=== PATIENT | male | born 1955 | race Caucasian/White ===

== ENCOUNTER 2023-12-24 14:03 | Emergency (ER) | payer MEDICARE, SELFPAY ==
[2023-12-24] VITALS (9 sets, daily range): BP systolic 113–149; BP diastolic 72–100; PULSE 64–77; RESP 12–20; TEMP 36.6; O2SAT 94–98; BMI 36.3
--- NOTE | 2023-12-24 14:24 | CRLHL7_ITS ---
For Patients: As a result of the Century Cures Act, medical imaging exams and procedure reports are released immediately into your electronic medical record. You may view this report before your referring provider. If you have questions, please contact your health care provider. Indication: R sided facial droop Technique: CT of the head without contrast. Coronal and sagittal reformats. Bone and soft tissue windows. Comparison: No prior studies available for comparison at this institution. Findings: No acute intracranial hemorrhage or extra-axial collection. No evidence of acute cortical infarction. No mass effect or midline shift. Normal cerebral volume. The ventricles are normal in size, shape and contour. There is normal osei and white matter differentiation. Prominent perivascular spaces in the bilateral basal ganglia. There is a partially calcified 1.6 x 1 centimeter meningioma along the left posterior parietal convexity with mild mass effect on the underlying parenchyma and without evidence of parenchymal edema. The orbital contents are normal. No calvarial fractures. No lytic or sclerotic osseous lesions within the calvarium or skull base. Scalp and other imaged soft tissue structures are normal. Mastoid air cells are clear. Paranasal sinuses are well aerated. Impression: 1. No acute intracranial abnormality. 2. There is a partially calcified 1.6 cm meningioma along the left posterior parietal convexity with mild mass effect on the underlying parenchyma and without evidence of parenchymal edema. Please note that all CT scans at this facility use dose modulation, iterative reconstruction, and/or weight-based dosing when appropriate to reduce radiation dose to as low as reasonably achievable. Dictated by Darrick Francois MD @ 12/24/2023 3:23:37 PM (Electronically Signed)
--- NOTE | 2023-12-24 14:24 | CRLHL7_ITS ---
For Patients: As a result of the Century Cures Act, medical imaging exams and procedure reports are released immediately into your electronic medical record. You may view this report before your referring provider. If you have questions, please contact your health care provider. CLINICAL HISTORY: Right-sided facial droop. TECHNIQUE: Standard helical CT image acquisition through the head following the administration of intravenous contrast was performed. 3D and MIP reconstructions were performed at a separate workstation and permanently archived. COMPARISON: None available. FINDINGS: No intracranial proximal large vessel occlusion or flow-limiting luminal stenosis. No evidence of cerebral aneurysm. No findings to suggest an arterial-venous shunting lesion. The major dural venous sinuses and deep venous system are patent. Left posterior parietal convexity meningioma. IMPRESSION: No intracranial proximal large vessel occlusion, flow-limiting luminal stenosis, or cerebral aneurysm. Please note that all CT scans at this facility use dose modulation, iterative reconstruction, and/or weight-based dosing when appropriate to reduce radiation dose to as low as reasonably achievable. Dictated by Danial John MD @ 12/25/2023 12:03:46 AM (Electronically Signed)
--- NOTE | 2023-12-24 14:24 | CRLHL7_ITS ---
For Patients: As a result of the Century Cures Act, medical imaging exams and procedure reports are released immediately into your electronic medical record. You may view this report before your referring provider. If you have questions, please contact your health care provider. CLINICAL HISTORY: Right-sided facial droop. TECHNIQUE: Standard helical CT image acquisition through the neck was performed after intravenous contrast bolus enhancement. 3D and MIP reconstructions were performed at a separate workstation and permanently archived. COMPARISON: None available. FINDINGS: The origins of the great vessels from the aortic arch are patent. The common carotid arteries are patent. No significant luminal stenoses of the proximal ICAs by NASCET criteria. The more distal cervical segments of the ICAs are patent. The origins and cervical segments of the vertebral arteries are patent. IMPRESSION: Patent cervical arterial vasculature without hemodynamically significant luminal stenosis. Please note that all CT scans at this facility use dose modulation, iterative reconstruction, and/or weight-based dosing when appropriate to reduce radiation dose to as low as reasonably achievable. Dictated by Danial John MD @ 12/24/2023 11:59:43 PM (Electronically Signed)
--- NOTE | 2023-12-24 14:26 | ED_ITS ---
HPI - General Adult General Chief complaint: Neuro Symptoms/Altered Deficit Stated complaint: Possible stroke--slurred speech Time Seen by Provider: 12/24/23 14:04 History of Present Illness HPI narrative: Patient is a 67-year-old gentleman who comes in with a 36 hour history of right-sided facial droop. This involves both the upper and lower side of the face. He has no difficulties with articulation other than from his drooped left side of his face. He has no bowel or bladder symptoms no fevers no chills no palpitations. No numbness no tingling no weakness elsewhere. His addition he has no numbness on his face. His sensation of taste and smell or un altered. The patient is able to close his left eye but with a different pattern as to the right eye. Patient has had no similar symptoms. He does take baby aspirin daily for cardiac reasons and has history of hypertension and hyper lipidemia. Related Data Home Medications ?Medication ?Instructions ?Recorded ?Confirmed amlodipine 10 mg tablet 10 mg PO DAILY 12/24/23 12/24/23 famotidine 40 mg tablet 40 mg PO QPM 12/24/23 12/24/23 fluticasone propionate 50 1 spray intranasal DAILY 12/24/23 12/24/23 mcg/actuation nasal spray,suspension loratadine 10 mg tablet 10 mg PO DAILY 12/24/23 12/24/23 losartan 100 mg tablet 100 mg PO DAILY 12/24/23 12/24/23 simvastatin 40 mg tablet 40 mg PO QPM 12/24/23 12/24/23 spironolactone 25 mg tablet 25 mg PO QAM 12/24/23 12/24/23 Previous Rx's ?Medication ?Instructions ?Recorded prednisone 20 mg tablet 30 mg (1.5 x 20 mg) PO BID #21 tabs 12/24/23 valacyclovir 1 gram tablet 1,000 mg PO TID #21 tabs 12/24/23 Allergies Allergy/AdvReac Type Severity Reaction Status Date / Time shellfish derived Allergy Unknown Verified 12/24/23 14:15 Review of Systems Status of ROS: Reports: 10 or more systems reviewed and unremarkable except as noted in History and below PFSH PFS Social History Smoking Status: Never smoker Do you use any of these nicotine containing products: None Second hand tobacco smoke exposure: No How often do you have a drink containing alcohol: never AUDIT-C Alcohol total score: 0 Non-prescribed substance use: denies use Exam Narrative: Exam Narrative: EXAM GENERAL: Patient appears comfortable and well. EYES: No scleral icterus. ENT: Tympanic membranes and oropharynx normal. THYROID: no thyroid nodules or thyromegaly. LYMPH: No supraclavicular or cervical lymphadenopathy. SKIN: Visible skin seen during exam normal or with benign process only. EXT: No dependent lower extremity pedal edema. HEART: Regular rate and rhythm with no murmurs, rubs, or gallops. LUNGS: Clear to auscultation bilaterally with no crackles or wheezes. ABD: Soft, non tender, non distended. PSYCH: Good eye contact, speech is not pressured. Neurologic: He has obvious drooping of the left side of his face involving the entire face. He is able to close the left eyelid but the brow is asymmetrical. No other focal neurologic defects. 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 I did initiate stroke workup with CT CTA CBC CMP EKG and UA. Vital Signs Vital signs: Initial Vital Signs Pulse Rate 77 12/24/23 14:09 Respiratory Rate 14 12/24/23 14:09 Blood Pressure 149/100 H 12/24/23 14:09 Blood Pressure Mean 116 H 12/24/23 14:09 Pulse Oximetry 94 12/24/23 14:09 Vital Signs Pulse Rate 77 12/24/23 14:09 Respiratory Rate 14 12/24/23 14:09 Blood Pressure 149/100 H 12/24/23 14:09 Pulse Oximetry 94 12/24/23 14:09 Temperature 97.8 F 12/24/23 14:12 Pulse Rate 64 12/24/23 15:17 Respiratory Rate 14 12/24/23 15:17 Blood Pressure 147/80 H 12/24/23 15:17 Pulse Oximetry 98 12/24/23 15:17 Oxygen Delivery Method Room Air 12/24/23 15:17 Medical Decision Making MDM Narrative Medical decision making narrative: Patient presents with classic findings of peripheral 7 or Almanza's palsy on the left. Workup is otherwise unremarkable with the exception of congenital findings and noncritical stenosis of the neck arteries as seen on CT. CT of the head does show a 1.6 cm meningioma in the left posterior parietal convexity. I did review these findings with Neurology and Neurology does not feel that the meningioma is clinically significant at this time but does require follow-up. Patient is otherwise neurologically intact. He does have risk factors I do think he does need follow-up of her think is most prudent to treat him for Almanza's palsy with valacyclovir and prednisone which we will be doing at this time. Differential diagnosis includes but not limited to Almanza's palsy Farhan Peter syndrome cerebrovascular accident TIA vertebral artery dissection. Lab Data Labs: Lab Results 12/24/23 12/24/23 Range/Units 14:20 14:37 Sodium 139 (135-149) mmol/L Potassium 4.5 (3.6-5.1) mmol/L Chloride 103 (96-114) mmol/L Carbon Dioxide 29 (20-32) mmol/L Anion Gap 7 (7-15) mEq/L BUN 19 (7-30) mg/dL Creatinine 0.9 (0.5-1.5) mg/dL Estimated Creat Clear 76.35 Estimated GFR 94 ml/min Glucose 101 (60-115) mg/dL Calcium 9.7 (8.4-10.6) mg/dL Total Bilirubin 0.7 (0.1-1.5) mg/dL AST 28 (12-35) U/L ALT 26 (4-50) U/L Alkaline Phosphatase 52 (40-150) U/L Total Protein 8.0 (6.0-8.3) g/dL Albumin 4.7 (3.3-5.0) g/dL Triglycerides 219 H (40-149) mg/dL Cholesterol 175 (90-199) mg/dL LDL Cholesterol, Calc 92 (<100) mg/dL HDL Cholesterol 39 L (>=40) mg/dL Urine Color Yellow (Yellow) Urine Appearance Clear (Clear) Urine pH 5.5 (5.0-8.5) Ur Specific Birney 1.015 (1.000-1.030) Urine Protein Negative (Negative) Urine Glucose (UA) Negative (Negative) Urine Ketones Negative (Negative) Urine Blood Negative (Negative) Urine Nitrite Negative (Negative) Urine Bilirubin Negative (Negative) Urine Urobilinogen 0.2 (0.2-1.0) Ur Leukocyte Esterase Negative (Negative) Discharge Plan Discharge Clinical Impression: Almanza's palsy, Meningioma Additional Instructions: Prednisone 30 mg twice daily for 7 days. Valacyclovir 1000 mg 3 times a day for 7 days. Follow-up with your doctor this week. Continue current medications. Activity Level: No Restrictions Discharge Diet: Regular Prescriptions: New valacyclovir 1 gram tablet 1,000 mg PO TID Qty: 21 2RF prednisone 20 mg tablet 30 mg PO BID Qty: 21 0RF No Action famotidine 40 mg tablet 40 mg PO QPM spironolactone 25 mg tablet 25 mg PO QAM simvastatin 40 mg tablet 40 mg PO QPM amlodipine 10 mg tablet 10 mg PO DAILY losartan 100 mg tablet 100 mg PO DAILY fluticasone propionate 50 mcg/actuation spray,suspension 1 spray INTRANASAL DAILY loratadine 10 mg tablet 10 mg PO DAILY Follow Up/Referrals: Juan Antonio MD [Primary Care Provider] -
[2023-12-24 14:34] LABS: Appearance Urine Clear (Clear); Bilirubin Urine Negative (Negative); Blood Urine Negative (Negative); Color Urine Yellow (Yellow); Glucose Urine Negative (Negative); Ketones Urine Negative (Negative); Leukocyte Esterase Urine Negative (Negative); Nitrite Urine Negative (Negative); Protein Urine Negative (Negative); Specific Gravity Urine 1.015 (1.000-1.030); Urobilinogen Urine 0.2 (0.2-1.0); pH Urine 5.5 (5.0-8.5)
[2023-12-24 14:57] LABS: Albumin* 4.7 g/dL (3.3-5.0); Chloride* 103 mmol/L (96-114)
[2023-12-24 14:58] LABS: Potassium* 4.5 mmol/L (3.6-5.1); Sodium* 139 mmol/L (135-149)
[2023-12-24 15:00] LABS: Anion Gap 7 mEq/L (7-15); Aspartate Amino Transferase* 28 U/L (12-35); Bilirubin Total* 0.7 mg/dL (0.1-1.5); Blood Urea Nitrogen* 19 mg/dL (7-30); Carbon Dioxide* 29 mmol/L (20-32); Cholesterol* 175 mg/dL (90-199); Creatinine* 0.9 mg/dL (0.5-1.5); Est. Creatinine Clearance* 76.35; Estimated Glomerular Filt Rate 94 ml/min; Glucose* 101 mg/dL (60-115)
[2023-12-24 15:01] LABS: Alanine Aminotransferase* 26 U/L (4-50); Alkaline Phosphatase* 52 U/L (40-150); Calcium* 9.7 mg/dL (8.4-10.6); HDL Cholesterol* 39 mg/dL (>=40); LDL Cholesterol Calculated 92 mg/dL (<100); Triglycerides* 219 mg/dL (40-149)
== END 2023-12-24 16:47 | disposition home or self-care (01) ==
LOC: ED 14:59
PROVIDERS: Emergency Provider Internal Medicine; PCP Family Medicine
DX: G51.0 Bell's palsy (principal); D32.9 Benign neoplasm of meninges, unspecified
CPT/HCPCS: 36415; 70450; 70496; 70498; 80053; 80061; 81003; 93005; 99283; 99284; 99285; Q9967